=== PATIENT | female | born 1950 | race Asian ===

== ENCOUNTER → 2016-10-25 | Outpatient (CLI) | payer MEDICARE, OTHER ==
[2016-10-25 16:39] LABS: BASOPHILS % (AUTO) 0.8 % (0.0-2.0); EOSINOPHILS % (AUTO) 2.7 % (1.0-6.0); HEMATOCRIT 38.9 % (36-46); HEMOGLOBIN 13.2 g/dL (12.0-16.0); LYMPHOCYTES % (AUTO) 38.6 % (22.0-44.0); MEAN CORPUSCULAR HEMOGLOBIN 30.5 pg (26.0-34.0); MEAN CORPUSCULAR HGB CONC 33.8 G/dL (31.0-37.0); MEAN CORPUSCULAR VOLUME 90 fL (80-100); MONOCYTES # (AUTO) 0.6 K/uL (0.1-1.0); MONOCYTES % (AUTO) 11.3 % (2.0-9.0); NEUTROPHILS # (AUTO) 2.4 K/uL (1.8-7.7); NEUTROPHILS % (AUTO) 46.6 % (40.0-70.0); PLATELET COUNT (AUTO) 376 K/uL (150-450); RED BLOOD CELL COUNT(AUTO) 4.31 MIL/uL (4.00-5.20); RED CELL DISTRIBUTION WIDTH 12.7 % (11.5-14.5); WHITE BLOOD COUNT (AUTO) 5.2 K/uL (4.5-11.0)
[2016-10-25 16:41] LABS: ADD UA MICROSCOPIC NO; APPEARANCE,URINE CLEAR (CLEAR); GLUCOSE, URINE (UA) NEGATIVE (NEGATIVE); KETONES,URINE NEGATIVE (NEGATIVE); LEUKOCYTE ESTERASE ,URINE NEGATIVE (NEGATIVE); OCCULT BLOOD,URINE NEGATIVE (NEGATIVE); PH,URINE 6.5 (5.0-8.0); PROTEIN,URINE NEGATIVE (NEGATIVE)
[2016-10-25 16:52] LABS: PROTHROMBIN TIME 10.1 SEC (9.4-11.6)
[2016-10-25 16:54] LABS: ANION GAP 9 mmol/L (8-16); CARBON DIOXIDE 29 mmol/L (22-29); CHLORIDE 106 mmol/L (98-107); CREATININE 0.55 mg/dL (0.60-1.30); GLOMERULAR FILTR. RATE CALC > 60 mL/min (>60); SODIUM SERUM 144 mmol/L (136-145); UREA NITROGEN, BLOOD 10 mg/dL (7-18)
== END | disposition home or self-care (01) ==
LOC: MSR 15:09
DX: G57.81 Other specified mononeuropathies of right lower limb (principal); Z87.09 Personal history of other diseases of the respiratory system
CPT/HCPCS: 82565; 84520; 93005

== ENCOUNTER 2016-10-31 05:57 | Day surgery (SDC) | payer MEDICARE, OTHER ==
[~2016-10-31] VITALS: Ht 162.6 cm; Wt 63.6 kg
[~2016-10-31 05:57] MED LIST: RINGERS SOLUTION,LACTATED 1,000 ML IV ONE
[2016-10-31] MEDS ORDERED: RINGERS SOLUTION,LACTATED 1,000 ML IV ONE (06:08)
[2016-10-31] MEDS ORDERED: HYDROmorphone 2 MG/ML SYRINGE IVP PRN (07:15)
[2016-10-31] MEDS ORDERED: MEPERIDINE-PF 25 MG/ML SYRINGE IVP PRN (07:15)
[2016-10-31] MEDS ORDERED: FentaNYL CITRATE-PF 100 MCG/2 ML VIAL IVP PRN (07:15)
[2016-10-31] MEDS: LIDOCAINE HCL/PF 2% 5 ML VIAL ONE ×2 (07:30→07:45)
[2016-10-31] MEDS: BUPIVACAINE HCL/PF 0.5% 30 ML VIAL ONE ×2 (07:30→07:45)
[2016-10-31] MEDS ORDERED: OXYGEN THERAPY IH SCH (08:00)
[2016-10-31] MEDS: BACITRACIN 28.4 GM OINTMENT TP ONE ×2 (08:17→08:23)
[2016-10-31] MEDS ORDERED: DEXAMETHASONE SOD PHOS 4 MG/ML VIAL IVP ONE (22:38)
[2016-10-31] MEDS ORDERED: KETOROLAC TROMETHAMINE 60 MG/2 ML VIAL IM ONE (22:38)
[2016-10-31] MEDS ORDERED: FentaNYL CITRATE-PF 100 MCG/2 ML VIAL IVP ONE (22:38)
[2016-10-31] MEDS ORDERED: ONDANSETRON HCL 4 MG/2 ML VIAL IVP ONE (22:38)
[2016-10-31] MEDS ORDERED: PROPOFOL 1% 20 ML VIAL IVP ONE (22:38)
[2016-10-31] MEDS ORDERED: MIDAZOLAM HCL 2 MG/2 ML VIAL IVP ONE (22:38)
== END 2016-10-31 10:25 | disposition home or self-care (01) ==
LOC: SURGERY 05:57
DX: G57.61 Lesion of plantar nerve, right lower limb (principal); J45.909 Unspecified asthma, uncomplicated
CPT/HCPCS: 64776; J1100; J1885; J2250; J2405; J2704; J3010; J3490 ×2; J7120; 88304